=== PATIENT | female | born 1980 | race Hispanic/Latino ===

== ENCOUNTER 2021-02-16 08:13 | Outpatient (CLI) | payer OTHER | END 2021-02-16 08:14 | disposition home or self-care (01) | LOC: BICULT 08:13 | PROVIDERS: ATTEND Family Medicine | DX: N92.0 Excessive and frequent menstruation with regular cycle (principal) | CPT/HCPCS: 76856 ==

== ENCOUNTER 2022-08-15 16:00 | Observation (INO) | payer OTHER, SELFPAY ==
[2022-08-15] MEDS ORDERED: Acetaminophen 500 MG TAB ONE (16:32)
[2022-08-15] MEDS ORDERED: Metoclopramide HCl 10 MG/2 ML VIAL ONE (16:32)
[2022-08-15 16:48] LABS: #Basophils 0.1 thou/uL (0.0-0.2); #Eosinphils 0.2 thou/uL (0.0-0.7); #Lymphocytes 2.4 thou/uL (1.20-3.40); #Monocytes 0.7 thou/uL (0.11-0.59); #Neutrophils 12.2 thou/uL (1.40-6.50); %Basophils 0.3 % (0.0-1.0); %Eosinophils 1.2 % (0.0-10.0); %Lymphocytes 15.7 % (21.0-51.0); %Monocytes 4.5 % (0.0-10.0); %Neutrophils 78.3 % (42.0-75.0); Hemoglobin 9.8 g/dL (12.0-16.0); Mean Corpuscular HGB CONC 31.9 g/dL (32.0-36.0); Mean Corpuscular Hemoglobin 24.2 pg (27.0-31.0); Mean Corpuscular Volume 75.7 fl (78.0-98.0); Mean Platelet Volume 7.7 fL (7.4-10.4); Platelet Count 477 10x3/uL (130-400); RBC Distribution Width 14.7 % (11.5-14.5); Red Blood Cell (RBC) Count 4.05 mill/uL (4.20-5.40); White Blood Cell (WBC) Count 15.6 10x3/uL (4.8-10.8)
[2022-08-15 17:07] LABS: ALT (SGPT) 9 U/L (8-55); AST (SGOT) 12 U/L (5-34); Albumin 4.3 g/dL (3.5-5.0); Alkaline Phosphatase 84 U/L (40-110); Anion Gap 13 mmol/L (10-20); BHCG - Serum Negative (NEGATIVE); BUN (Urea Nitrogen) 11 mg/dL (7.0-18.7); Bilirubin, Total 0.3 mg/dL (0.2-1.2); CK (CPK) 91 U/L (29-168); Calc. Creatinine Clearance 0 mL/min (70-130); Calcium 9.3 mg/dL (7.8-10.44); Carbon Dioxide 22 mmol/L (22-29); Chloride 104 mmol/L (98-107); Estimated GFR 112; Globulin 3.5 g/dL (2.4-3.5); Potassium 2.7 mmol/L (3.5-5.1); Pregs Control Background? CLEAR/WHITE (CLR/WHITE); Pregs Control Bar Appear? YES (CONTROL BAR); Protein, Total 7.8 g/dL (6.0-8.3); Sodium 136 mmol/L (136-145)
[2022-08-15 17:16] LABS: Glucose 47 mg/dL (70-105)
[2022-08-15] MEDS ORDERED: Potassium Chloride 20 MEQ/100 ML PREMIX BAG ONE (17:21)
[2022-08-15] MEDS ORDERED: Ondansetron HCl/PF 8 MG in Sodium Chloride 0.9% 50 ML IVPB PRN (19:24)
[2022-08-15] MEDS ORDERED: Acetaminophen 325 MG TAB PO PRN (19:30)
[2022-08-15] MEDS ORDERED: Ondansetron ODT 4 MG TAB SL PRN (19:30)
[2022-08-15 19:59] LABS: Hemoglobin A1c 6.6 % (4.0-6.0)
[2022-08-15 22:13] VITALS: BMI 39.8
[2022-08-15] MEDS ORDERED: HumaLOG 300 UNITS/3 ML VIAL SC PRN (23:06)
[2022-08-15] MEDS ORDERED: Dextrose 5% in Water 1,000 ML IV PRN (23:06)
[2022-08-15] MEDS ORDERED: Dextrose 50% Abboject 50 ML SYRINGE SLOW IVP PRN (23:06)
[2022-08-15] MEDS: D5 1/2 NS w/20 mEq KCL 1,000 ML IV SCH (23:58)
[2022-08-16] MEDS: D5 1/2 NS w/20 mEq KCL 1,000 ML IV SCH (02:00)
[2022-08-16] MEDS: HumaLOG 300 UNITS/3 ML VIAL SC PRN ×2 (04:23→12:00)
[2022-08-16 07:28] LABS: #Eosinphils 0.1 thou/uL (0.0-0.7); #Lymphocytes 1.5 thou/uL (1.20-3.40); #Monocytes 0.4 thou/uL (0.11-0.59); #Neutrophils 6.6 thou/uL (1.40-6.50); %Basophils 0.2 % (0.0-1.0); %Eosinophils 0.6 % (0.0-10.0); %Lymphocytes 17.8 % (21.0-51.0); %Neutrophils 76.5 % (42.0-75.0); Hemoglobin 9.1 g/dL (12.0-16.0); Mean Corpuscular HGB CONC 31.9 g/dL (32.0-36.0); Mean Corpuscular Hemoglobin 24.3 pg (27.0-31.0); Mean Corpuscular Volume 76.2 fl (78.0-98.0); Mean Platelet Volume 7.8 fL (7.4-10.4); Platelet Count 405 10x3/uL (130-400); RBC Distribution Width 14.7 % (11.5-14.5); Red Blood Cell (RBC) Count 3.76 mill/uL (4.20-5.40); White Blood Cell (WBC) Count 8.6 10x3/uL (4.8-10.8)
[2022-08-16 08:25] LABS: Anion Gap 10 mmol/L (10-20); BUN (Urea Nitrogen) 6 mg/dL (7.0-18.7); Calc. Creatinine Clearance 161 mL/min (70-130); Calcium 8.6 mg/dL (7.8-10.44); Carbon Dioxide 21 mmol/L (22-29); Chloride 106 mmol/L (98-107); Estimated GFR 111; Glucose 173 mg/dL (70-105); Potassium 4.2 mmol/L (3.5-5.1); Sodium 133 mmol/L (136-145)
[2022-08-16 12:28] VITALS: BP 122/72; TEMP 98.6
== END 2022-08-16 16:38 | disposition home or self-care (01) ==
LOC: ERS 16:00 → EEVIPCON 18:03 → T4-A 18:03
PROVIDERS: ADMIT Internal Medicine; ATTEND Internal Medicine
DX: E11.649 Type 2 diabetes mellitus with hypoglycemia without coma (principal); E87.6 Hypokalemia; I10 Essential (primary) hypertension
CPT/HCPCS: 36415; 36416; 70450; 80048; 80053; 82550; 83036; 84703; 85025; 93005; 96365; 96366; 96368; G0378; J1815; J2765; J3480